=== PATIENT | female | born 1970 | race Caucasian/White ===

== ENCOUNTER 2022-06-23 09:36 | Emergency (ER) | payer OTHER ==
[2022-06-23] MEDS ORDERED: Sodium Chloride 0.9% 10 ML Syringe FLUSH PRN (10:04)
[2022-06-23] MEDS ORDERED: Ketorolac 30 MG/ML SDV IVPUSH ONE (10:24)
[2022-06-23] MEDS ORDERED: LORazepam 2 MG/ML SDV IVPUSH ONE (10:24)
[2022-06-23] MEDS ORDERED: Ondansetron 4 MG/2 ML SDV IVPUSH ONE (10:24)
[2022-06-23] MEDS ORDERED: Sodium Chloride 0.9% 1,000 ML IV SCH (10:30)
[2022-06-23 11:05] LABS: ESTIMATED GFR 77 mL/min (>60)
[2022-06-23 11:25] LABS: CORONAVIRUS COVID-19 NAA POSITIVE (NEGATIVE)
== END 2022-06-23 12:20 | disposition home or self-care (01) ==
LOC: FB.ED 09:36
DX: U07.1 COVID-19 (principal); F41.0 Panic disorder [episodic paroxysmal anxiety]; D64.9 Anemia, unspecified; E87.6 Hypokalemia; K21.9 Gastro-esophageal reflux disease without esophagitis; E66.9 Obesity, unspecified; F17.210 Nicotine dependence, cigarettes, uncomplicated; Z68.34 Body mass index [BMI] 34.0-34.9, adult
CPT/HCPCS: 0241U; 36415; 71045; 80053; 83605; 85025; 96361; 96374; 96375; 99285-25; J1885; J2060; J2405; J3490; J7030